=== PATIENT | male | born 1985 | race Caucasian/White ===

== ENCOUNTER → 2016-06-08 | Outpatient (CLI) | payer OTHER ==
[~2016-06-08] MED LIST: OXYC-12 PO
--- NOTE | 2016-06-08 14:51 | Diagnostic Imaging Report ---
INDICATION: Right knee pain. FINDINGS: Three views of the right knee show no fracture, dislocation, or other acute abnormalities. IMPRESSION: Negative right knee. Dictated by: Dictated on workstation # [id number]
== END ==
LOC: RAD 13:44
PROVIDERS: ATTEND Family Medicine
DX: M79.661 Pain in right lower leg (principal)
CPT/HCPCS: 73562

== ENCOUNTER → 2019-05-21 | Outpatient (CLI) | payer BC | LOC: LAB 13:15 | PROVIDERS: ATTEND Urology | DX: Z31.42 Aftercare following sterilization reversal (principal) | CPT/HCPCS: 89321 ==